=== PATIENT | male | born 1945 | race Caucasian/White ===

== ENCOUNTER → 2016-08-20 | Outpatient (CLI) | payer MEDICARE, OTHER ==
[~2016-08-20] MED LIST: DILTIAZEM 24HR120 MG PO; LISINOPRIL5 MG PO; MULTAQ400 M1 PO; MULTIPLE VITAMI1 CAP PO; PRILOSEC40 M1 PO; PROCTOZONE-HC2.5% RC; VITAMIN C500 MG PO; VOLTAREN-XR100 MG PO; XARELTO20 MG PO; ZANTAC 150150 MG PO
[2016-08-20 10:40] VITALS: BP 131/96
== END ==
LOC: AMSURD 10:00
DX: Z01.818 Encounter for other preprocedural examination (principal); I48.0 Paroxysmal atrial fibrillation; M17.0 Bilateral primary osteoarthritis of knee